=== PATIENT | female | born 1995 | race Hispanic/Latino ===

== ENCOUNTER 2017-08-01 18:28 | Emergency (ER) | payer OTHER ==
--- NOTE | 2017-08-01 19:50 | RAD ---
TWO VIEWS RIGHT ANKLE: History: Right ankle pain. Tripped while walking [place] Roberto. FINDINGS: AP, lateral, and oblique views of the right ankle obtained. There is soft tissue swelling along the lateral aspect of the right ankle. There appears to be a poss ible avulsion fracture involving the inferior most aspect of the lateral malleolus. IMPRESSION: Soft tissue swelling and possible avulsion fracture inferior most aspect of the lateral malleolus. POS: [facility]
== END 2017-08-01 20:43 | disposition home or self-care (01) ==
LOC: SCSER 18:28
DX: S82.831A Other fracture of upper and lower end of right fibula, initial encounter for closed fracture (principal); F41.9 Anxiety disorder, unspecified; F17.210 Nicotine dependence, cigarettes, uncomplicated; X50.9XXA Other and unspecified overexertion or strenuous movements or postures, initial encounter
CPT/HCPCS: 29515